=== PATIENT | female | born 1950 | race Caucasian/White ===

== ENCOUNTER 2019-04-14 23:46 | Inpatient (IN) ==
[2019-04-15] MEDS ORDERED: 0.9 % Sodium Chloride 1,000 ML IVC ONE ×2 (00:14→01:20)
[2019-04-15] MEDS ORDERED: Ondansetron 4 MG/2 ML VIAL IVP ONE (00:14)
[2019-04-15] MEDS ORDERED: Ipratropium Neb 0.5 MG NEBULIZER IH ONE (00:14)
--- NOTE | 2019-04-15 00:20 | Emergency Department Note ---
Disposition Clinical Impression: Hypoxia Disposition: Admitted As Inpatient Condition: Fair Referrals: NONE,PCP [Primary Care Provider] - Forms: ED Satisfaction Letter Time of Disposition: 02:45 General Adult HPI - General Chief complaint: ED Nausea/Vomiting/Diarrhea Stated complaint: weakness Time Seen by Provider: 04/15/19 00:00 Source: patient Mode of arrival: ambulatory Limitations: no limitations Nursing Notes Reviewed: Yes Vital Signs Reviewed: Yes - History of Present Illness HPI Narrative: 2 day history of feeling generally weak. She is not weak in one arm or one leg but started feeling weak when she was riding in a car "a good part of the day". She tells me the air conditioning and the car does not work very well and she had the windows open. The outside temperature is been in the mid 90s. No headache no vision issues no hearing issues no speech issues. Again not weak in one extremity. She has been dizzy and lightheaded. No palpitations no chest pain no shortness of breath. She has had a cough for the last 2 days as well but it has not been productive. She has been hot and cold but does not know if she has had a fever. No abdominal pain. She has been nauseated without throwing up. The nausea and generally loss of appetite the last 2 days has decreased her food intake. No diarrhea no blood in the stool no abdominal pain no urinary symptoms. She denies pain anywhere. No recent travel anywhere. No recent hospitalizations. Last year she had her colon taken out because of cancer at [facility] in [place]. She still has a port which has not been used for a year. She tells me however there is no talk of taking it out because of the fear of recurrence of cancer. She is not currently on chemotherapy and did not need any after the resection of the colon. She has followed up at [facility] since the colon was removed but she is not sure exactly when that was or when she is due back to be seen again. 15 years ago she had her left breast remove because of cancer. She stopped smoking a year ago and has no home medications including any inhalers. Pain Scale: 0 - Related Data Home Medications Medication Instructions Recorded Confirmed No Known Home Drugs 04/14/19 04/14/19 Allergies Allergy/AdvReac Type Severity Reaction Status Date / Time albuterol [From Ventolin HFA] Allergy Rash Verified 04/14/19 23:58 Constitutional: Reports: chills, weakness Eyes: Denies: vision change ENT ED: Denies: hearing loss Cardiovascular: Denies: chest pain, palpitations, dyspnea on exertion Respiratory: Reports: cough, sputum production Gastrointestinal: Reports: nausea. Denies: abdominal pain, vomiting, diarrhea, melena, hematochezia Genitourinary: Reports: as per HPI. Denies: urgency, dysuria, frequency, hematuria Musculoskeletal: Denies: arthralgia, myalgia Integumentary: Denies: rash Neurological: Reports: abnormal gait. Denies: headache, confusion Endocrine: Reports: fatigue Hematological/Lymphatic: Denies: easy bleeding, easy bruising Past Medical History - Past Medical History Medical history: Reports: cancer Psychiatric history: Reports: no psych history - Social History Smoking Status: Former smoker Smokeless Tobacco Status: No Alcohol use: Reports: none Drug use: Reports: none Physical Exam - General Limitations: no limitations General appearance: alert, in no apparent distress, other (She appears to be a good historian and answers questions appropriately.) - Head Head exam: atraumatic, normocephalic - Eye Eye exam: Present: normal appearance, PERRL, EOMI. Absent: scleral icterus - ENT ENT exam: normal oropharynx, mucous membranes moist, mucous membranes dry, normal external ear exam - Neck Neck exam: Present: normal inspection, full ROM. Absent: lymphadenopathy - Chest Chest inspection: Present: normal inspection, symmetric chest wall rise, other (Right-sided port anterior chest. Overlying skin is normal intact and non- erythematous nontender.). Absent: tenderness - Respiratory Respiratory exam: Present: wheezes (End expiratory wheezes right anterior. Bilateral bases inspiratory crackles which do not clear with coughing.), other (I am told by ER staff 89% room air and 2 L of nasal cannula were placed. Pulse ox mid 90s during my initial interview.). Absent: respiratory distress, stridor, accessory muscle use - Cardiovascular Cardiovascular exam: Present: regular rate, normal rhythm, normal heart sounds. Absent: systolic murmur, diastolic murmur - Abdominal Exam Abdominal exam: Present: soft, Non-Tender - Extremities Exam Extremities exam: Present: normal inspection. Absent: pedal edema, calf tenderness (No calf cord erythema or edema) - Back Exam Back exam: Present: normal inspection - Neurological Exam Neurological exam: Present: alert, CN II-XII intact. Absent: motor sensory deficit - Psychiatric Psychiatric exam: Present: normal affect, normal mood - Skin Skin exam: Present: warm, dry Course Vital Signs Temperature 98.6 F 04/14/19 23:59 Pulse Rate 107 04/14/19 23:59 Respiratory Rate 16 04/14/19 23:59 Blood Pressure 131/80 04/14/19 23:59 O2 Sat by Pulse Oximetry 92 04/14/19 23:59 Temperature 98.6 F 04/14/19 23:59 Pulse Rate 115 04/15/19 03:36 Respiratory Rate 20 04/15/19 03:36 Blood Pressure 124/88 04/15/19 03:36 O2 Sat by Pulse Oximetry 95 04/15/19 03:36 Oxygen Delivery Oxygen Delivery Nasal Cannula Medical Decision Making - MDM Narrative Medical decision making narrative: Hypoxia. Workup outlined as follows. Most probable cause pneumonia. 89% when she checked in corrected by 2 L of NC O2. One Atrovent given as she reported a rash with albuterol. Repeat lung exam demonstrated disappearance of the wheeze in the right lung previously noted on initial assessment. She feels as though she is able to breathe a little better although she was not complaining of any shortness of breath on initial assessment. Oxygen was attempted to be weaned at that point however on room air a few minutes later she was 85%. At this point d-dimer returned elevated. Although well's score is -1.5 she is positive for 3 of the Perc criteria which make imaging necessary. I return to the bedside and explained the reasoning for a CAT scan of the chest. She has never had a blood clot. She has had no issues with CAT scan dye except that it makes her feel "weird". Specifically she gets a funny taste in her mouth. She denies any issues with difficulty breathing with any contrast. CT PE negative but suspicious for pneumonia which would account for her hypoxia. She is not reporting any shortness of breath and with her smoking history I wonder if she is chronically hypoxic. However with the abnormal lung findings the leukocytosis we must assume that this is acute within the last couple of days. Difficult to say because she does not regularly go to the doctor where she would have her pulse ox checked. Nonetheless she is O2 dependent and will warrant hospitalization. She is known to [facility] in [place] but I do not believe that her current symptoms are cancer related so I did invite her to stay here at [facility] and she agreed. I spoke with the covering hospitalist and presented the case. He accepted admission. She is in improved condition awaiting transfer to the floor. The Zosyn has been given however does not cover atypicals for the possibility of Legionella in this patient there for Levaquin 750 mg will be started before she is transferred. She did have some decreasing blood pressures while she was here in the emergency department with a systolic of 124 after 2 L of fluid shortly before transfer. She is alert and appears well and I do not believe she is frankly septic. Note-blood cultures were drawn when Zosyn was almost done. Pyuria. I return to the bedside after the UA returned and revisited urinary symptoms all of which she denies. We will hang empiric Zosyn as we await the remainder of her labs. She does tell me she is feeling subjectively better in terms of her nausea after the IV Zofran at this point. The Levaquin should cover any urinary pathogens showed day grow out positive and culture. - Lab Data Lab results reviewed: Yes I reviewed the patient's lab results. Result diagrams: 04/15/19 00:50 04/15/19 00:50 Lab Results 04/15/19 04/15/19 04/15/19 Range/Units 00:50 00:50 00:50 WBC (4.3-11.1) K/mcL RBC (3.82-4.97) M/mcL Hgb (11.5-15.4) g/dL Hct (35.3-44.9) % MCV (83.0-100.0) fL MCH (28.0-33.3) pg MCHC (31.6-35.5) g/dL RDW (11.5-14.5) % Plt Count (140-400) K/mcL MPV (9.4-12.4) fL Immature Gran % (0-4) % Seg Neutrophils % % Lymphocytes % % Monocytes % % Eosinophils % % Basophils % % Neutrophils # (1.6-8.9) K/mcL Lymphocytes # (0.6-4.6) K/mcL Monocytes # (0.0-1.3) K/mcL Eosinophils # (0.0-0.6) K/mcL Basophils # (0.0-0.2) K/mcL PT (9.4-12.1) Seconds INR APTT (26.0-36.0) Seconds D-Dimer 954 H (0-500) ng/mLFEU Sodium (136-145) mEq/L Potassium (3.5-5.1) mEq/L Chloride (98-107) mEq/L Carbon Dioxide (23-29) mEq/L BUN (8-23) mg/dL Creatinine (0.60-1.20) mg/dL Est GFR ( Amer) (> 60) Est GFR (Non-Af Amer) (> 60) BUN/Creatinine Ratio (6-26) Glucose (70-105) mg/dL Calculated Osmolality (280-300) Calcium (8.6-10.3) mg/dL Phosphorus (2.7-4.5) mg/dL Magnesium (1.6-2.6) mg/dL Total Bilirubin (0.3-1.0) mg/dL Direct Bilirubin (0.0-0.2) mg/dL AST (13-39) Units/L ALT (7-52) Units/L Alkaline Phosphatase (34-104) Units/L Troponin I < 0.03 (< 0.04) ng/mL B-Natriuretic Peptide 100 H (Less than 100) pg/mL Serum Total Protein (6.4-8.9) g/dL Albumin (3.5-5.7) g/dL Globulin (2.4-3.5) g/dL Albumin/Globulin Ratio (1.1-2.2) TSH (0.340-5.600) mcIU/mL Urine Color (Yellow) Urine Clarity (Clear) Urine pH (5.0-8.0) pH Units Ur Specific [place] (1.010-1.025) Urine Protein (Neg-Trace) mg/dL Urine Glucose (UA) (Normal) mg/dL Urine Ketones (Negative) mg/dL Urine Blood (Negative) Urine Nitrite (Negative) Urine Bilirubin (Negative) Urine Urobilinogen (Normal) mg/dL Ur Leukocyte Esterase (Negative) Urine Microscopic RBC (0-3) per hpf Urine Microscopic WBC (0-3) per hpf Ur Squamous Epith Cells (None-Few) per lpf Urine Bacteria (None-Few) per hpf Ur Culture Indicated? (NO) Urine Opiates Screen (Gxrrhc=714) ng/mL Ur Buprenorphine Scrn (Cutoff=5) ng/mL Ur Barbiturates Screen (Kphbey=612) ng/mL Ur Phencyclidine Scrn (Cutoff=25) ng/mL Ur Amphetamines Screen (Rneabs=3116) ng/mL U Benzodiazepines Scrn (Psslye=777) ng/mL Urine Cocaine Screen (Cutoff= 300) ng/mL U Marijuana (THC) Screen (Cutoff = 50) ng/mL Ur Drug Screen Interp 04/15/19 04/15/19 04/15/19 Range/Units 00:50 00:50 00:50 WBC 12.7 H (4.3-11.1) K/mcL RBC 4.50 (3.82-4.97) M/mcL Hgb 13.8 (11.5-15.4) g/dL Hct 41.5 (35.3-44.9) % MCV 92.2 (83.0-100.0) fL MCH 30.7 (28.0-33.3) pg MCHC 33.3 (31.6-35.5) g/dL RDW 12.4 (11.5-14.5) % Plt Count 165 (140-400) K/mcL MPV 10.7 (9.4-12.4) fL Immature Gran % 0.3 (0-4) % Seg Neutrophils % 83.2 % Lymphocytes % 6.0 % Monocytes % 10.2 % Eosinophils % 0.1 % Basophils % 0.2 % Neutrophils # 10.6 H (1.6-8.9) K/mcL Lymphocytes # 0.8 (0.6-4.6) K/mcL Monocytes # 1.3 (0.0-1.3) K/mcL Eosinophils # 0.0 (0.0-0.6) K/mcL Basophils # 0.0 (0.0-0.2) K/mcL PT (9.4-12.1) Seconds INR APTT (26.0-36.0) Seconds D-Dimer (0-500) ng/mLFEU Sodium (136-145) mEq/L Potassium (3.5-5.1) mEq/L Chloride (98-107) mEq/L Carbon Dioxide (23-29) mEq/L BUN (8-23) mg/dL Creatinine (0.60-1.20) mg/dL Est GFR ( Amer) (> 60) Est GFR (Non-Af Amer) (> 60) BUN/Creatinine Ratio (6-26) Glucose (70-105) mg/dL Calculated Osmolality (280-300) Calcium (8.6-10.3) mg/dL Phosphorus (2.7-4.5) mg/dL Magnesium (1.6-2.6) mg/dL Total Bilirubin (0.3-1.0) mg/dL Direct Bilirubin (0.0-0.2) mg/dL AST (13-39) Units/L ALT (7-52) Units/L Alkaline Phosphatase (34-104) Units/L Troponin I (< 0.04) ng/mL B-Natriuretic Peptide (Less than 100) pg/mL Serum Total Protein (6.4-8.9) g/dL Albumin (3.5-5.7) g/dL Globulin (2.4-3.5) g/dL Albumin/Globulin Ratio (1.1-2.2) TSH (0.340-5.600) mcIU/mL Urine Color Dark Yellow (Yellow) Urine Clarity Slightly Cloudy A (Clear) Urine pH 5.5 (5.0-8.0) pH Units Ur Specific [place] 1.025 (1.010-1.025) Urine Protein 100 H (Neg-Trace) mg/dL Urine Glucose (UA) 100 H (Normal) mg/dL Urine Ketones 15 H (Negative) mg/dL Urine Blood Large H (Negative) Urine Nitrite Positive A (Negative) Urine Bilirubin Small H (Negative) Urine Urobilinogen Normal (Normal) mg/dL Ur Leukocyte Esterase Moderate H (Negative) Urine Microscopic RBC 5-15 H (0-3) per hpf Urine Microscopic WBC 5-15 H (0-3) per hpf Ur Squamous Epith Cells Few (None-Few) per lpf Urine Bacteria Moderate H (None-Few) per hpf Ur Culture Indicated? YES A (NO) Urine Opiates Screen Negative (Rtqskq=720) ng/mL Ur Buprenorphine Scrn Negative (Cutoff=5) ng/mL Ur Barbiturates Screen Negative (Fctxtn=544) ng/mL Ur Phencyclidine Scrn Negative (Cutoff=25) ng/mL Ur Amphetamines Screen Negative (Qwbkpa=1771) ng/mL U Benzodiazepines Scrn Negative (Anaorw=236) ng/mL Urine Cocaine Screen Negative (Cutoff= 300) ng/mL U Marijuana (THC) Screen Negative (Cutoff = 50) ng/mL Ur Drug Screen Interp See Below 04/15/19 04/15/19 04/15/19 Range/Units 00:50 00:50 00:50 WBC (4.3-11.1) K/mcL RBC (3.82-4.97) M/mcL Hgb (11.5-15.4) g/dL Hct (35.3-44.9) % MCV (83.0-100.0) fL MCH (28.0-33.3) pg MCHC (31.6-35.5) g/dL RDW (11.5-14.5) % Plt Count (140-400) K/mcL MPV (9.4-12.4) fL Immature Gran % (0-4) % Seg Neutrophils % % Lymphocytes % % Monocytes % % Eosinophils % % Basophils % % Neutrophils # (1.6-8.9) K/mcL Lymphocytes # (0.6-4.6) K/mcL Monocytes # (0.0-1.3) K/mcL Eosinophils # (0.0-0.6) K/mcL Basophils # (0.0-0.2) K/mcL PT 14.3 H (9.4-12.1) Seconds INR 1.3 APTT 31.5 (26.0-36.0) Seconds D-Dimer (0-500) ng/mLFEU Sodium 137 (136-145) mEq/L Potassium 3.8 (3.5-5.1) mEq/L Chloride 104 (98-107) mEq/L Carbon Dioxide 24 (23-29) mEq/L BUN 15 (8-23) mg/dL Creatinine 1.15 (0.60-1.20) mg/dL Est GFR ( Amer) 57 L (> 60) Est GFR (Non-Af Amer) 47 L (> 60) BUN/Creatinine Ratio 13 (6-26) Glucose 122 H (70-105) mg/dL Calculated Osmolality 286 (280-300) Calcium 9.3 (8.6-10.3) mg/dL Phosphorus 2.8 (2.7-4.5) mg/dL Magnesium 2.1 (1.6-2.6) mg/dL Total Bilirubin 1.5 H (0.3-1.0) mg/dL Direct Bilirubin (0.0-0.2) mg/dL AST 24 (13-39) Units/L ALT 20 (7-52) Units/L Alkaline Phosphatase 64 (34-104) Units/L Troponin I (< 0.04) ng/mL B-Natriuretic Peptide (Less than 100) pg/mL Serum Total Protein 6.9 (6.4-8.9) g/dL Albumin 3.7 (3.5-5.7) g/dL Globulin 3.2 (2.4-3.5) g/dL Albumin/Globulin Ratio 1.2 (1.1-2.2) TSH 2.130 (0.340-5.600) mcIU/mL Urine Color (Yellow) Urine Clarity (Clear) Urine pH (5.0-8.0) pH Units Ur Specific [place] (1.010-1.025) Urine Protein (Neg-Trace) mg/dL Urine Glucose (UA) (Normal) mg/dL Urine Ketones (Negative) mg/dL Urine Blood (Negative) Urine Nitrite (Negative) Urine Bilirubin (Negative) Urine Urobilinogen (Normal) mg/dL Ur Leukocyte Esterase (Negative) Urine Microscopic RBC (0-3) per hpf Urine Microscopic WBC (0-3) per hpf Ur Squamous Epith Cells (None-Few) per lpf Urine Bacteria (None-Few) per hpf Ur Culture Indicated? (NO) Urine Opiates Screen (Tsxcmg=407) ng/mL Ur Buprenorphine Scrn (Cutoff=5) ng/mL Ur Barbiturates Screen (Pljsxn=869) ng/mL Ur Phencyclidine Scrn (Cutoff=25) ng/mL Ur Amphetamines Screen (Hbgxrz=1612) ng/mL U Benzodiazepines Scrn (Mhkkbv=244) ng/mL Urine Cocaine Screen (Cutoff= 300) ng/mL U Marijuana (THC) Screen (Cutoff = 50) ng/mL Ur Drug Screen Interp 04/15/19 Range/Units 00:50 WBC (4.3-11.1) K/mcL RBC (3.82-4.97) M/mcL Hgb (11.5-15.4) g/dL Hct (35.3-44.9) % MCV (83.0-100.0) fL MCH (28.0-33.3) pg MCHC (31.6-35.5) g/dL RDW (11.5-14.5) % Plt Count (140-400) K/mcL MPV (9.4-12.4) fL Immature Gran % (0-4) % Seg Neutrophils % % Lymphocytes % % Monocytes % % Eosinophils % % Basophils % % Neutrophils # (1.6-8.9) K/mcL Lymphocytes # (0.6-4.6) K/mcL Monocytes # (0.0-1.3) K/mcL Eosinophils # (0.0-0.6) K/mcL Basophils # (0.0-0.2) K/mcL PT (9.4-12.1) Seconds INR APTT (26.0-36.0) Seconds D-Dimer (0-500) ng/mLFEU Sodium (136-145) mEq/L Potassium (3.5-5.1) mEq/L Chloride (98-107) mEq/L Carbon Dioxide (23-29) mEq/L BUN (8-23) mg/dL Creatinine (0.60-1.20) mg/dL Est GFR ( Amer) (> 60) Est GFR (Non-Af Amer) (> 60) BUN/Creatinine Ratio (6-26) Glucose (70-105) mg/dL Calculated Osmolality (280-300) Calcium (8.6-10.3) mg/dL Phosphorus (2.7-4.5) mg/dL Magnesium (1.6-2.6) mg/dL Total Bilirubin (0.3-1.0) mg/dL Direct Bilirubin 0.2 (0.0-0.2) mg/dL AST (13-39) Units/L ALT (7-52) Units/L Alkaline Phosphatase (34-104) Units/L Troponin I (< 0.04) ng/mL B-Natriuretic Peptide (Less than 100) pg/mL Serum Total Protein (6.4-8.9) g/dL Albumin (3.5-5.7) g/dL Globulin (2.4-3.5) g/dL Albumin/Globulin Ratio (1.1-2.2) TSH (0.340-5.600) mcIU/mL Urine Color (Yellow) Urine Clarity (Clear) Urine pH (5.0-8.0) pH Units Ur Specific [place] (1.010-1.025) Urine Protein (Neg-Trace) mg/dL Urine Glucose (UA) (Normal) mg/dL Urine Ketones (Negative) mg/dL Urine Blood (Negative) Urine Nitrite (Negative) Urine Bilirubin (Negative) Urine Urobilinogen (Normal) mg/dL Ur Leukocyte Esterase (Negative) Urine Microscopic RBC (0-3) per hpf Urine Microscopic WBC (0-3) per hpf Ur Squamous Epith Cells (None-Few) per lpf Urine Bacteria (None-Few) per hpf Ur Culture Indicated? (NO) Urine Opiates Screen (Syasjy=846) ng/mL Ur Buprenorphine Scrn (Cutoff=5) ng/mL Ur Barbiturates Screen (Etwlqc=410) ng/mL Ur Phencyclidine Scrn (Cutoff=25) ng/mL Ur Amphetamines Screen (Mcgczu=1869) ng/mL U Benzodiazepines Scrn (Amgjdn=431) ng/mL Urine Cocaine Screen (Cutoff= 300) ng/mL U Marijuana (THC) Screen (Cutoff = 50) ng/mL Ur Drug Screen Interp - Radiology Data Radiology results reviewed: Yes I reviewed the patient's radiology results. - EKG Data EKG #1 EKG attestation: Yes I reviewed and interpreted this EKG. EKG results narrative: EKG as interpreted by me sinus tachycardia 108 beats per minutes. No T-wave abnormalities. Normal axis. No ST elevations or depressions. No evidence of hypertrophy. No comparison available.
[2019-04-15 00:55] LABS: Basophils % 0.2 %; Eosinophils % 0.1 %; Hematocrit 41.5 % (35.3-44.9); Hemoglobin 13.8 g/dL (11.5-15.4); Immature Granulocytes % 0.3 % (0-4); Lymphocytes # 0.8 K/mcL (0.6-4.6); Mean Corpuscular HGB Conc 33.3 g/dL (31.6-35.5); Mean Corpuscular Hemoglobin 30.7 pg (28.0-33.3); Mean Corpuscular Volume 92.2 fL (83.0-100.0); Mean Platelet Volume 10.7 fL (9.4-12.4); Monocytes # 1.3 K/mcL (0.0-1.3); Monocytes % 10.2 %; Neutrophils # 10.6 K/mcL (1.6-8.9); Platelet Count 165 K/mcL (140-400); Red Cell Distribution Width 12.4 % (11.5-14.5); Segmented Neutrophils % 83.2 %; White Blood Count 12.7 K/mcL (4.3-11.1)
[2019-04-15 01:06] LABS: Bilirubin,Urine Small (Negative); Blood,Urine Large (Negative); Clarity,Urine Slightly Cloudy (Clear); Glucose,Urine (UA) 100 mg/dL (Normal); Ketones,Urine 15 mg/dL (Negative); Leukocyte Esterase,Urine Moderate (Negative); Nitrite,Urine Positive (Negative); PH,Urine 5.5 pH Units (5.0-8.0); Protein,Urine 100 mg/dL (Neg-Trace); Specific Gravity,Urine 1.025 (1.010-1.025); Urobilinogen,Urine Normal (Normal)
[2019-04-15 01:07] LABS: Color,Urine Dark Yellow (Yellow); INR 1.3; Prothrombin Time 14.3 Seconds (9.4-12.1)
[2019-04-15 01:08] LABS: Bacteria,Urine Moderate per hpf (None-Few); Squamous Epithelial Cell,Urine Few per lpf (None-Few)
[2019-04-15] MEDS ORDERED: Piperacillin/Tazobactam 3.375 GM in 0.9 % Sodium Chloride Mini Bag 100 ML IVPB ONE (01:09)
[2019-04-15 01:10] LABS: Activated Partial Thrombo Time 31.5 Seconds (26.0-36.0)
[2019-04-15 01:16] LABS: Amphetamine Screen,Urine Negative ng/mL (Cutoff=1000); Barbiturate Screen,Urine Negative ng/mL (Cutoff=200); Benzodiazepines Screen,Urine Negative ng/mL (Cutoff=200); Cannabinoid Screen,Urine Negative ng/mL (Cutoff = 50); Cocaine Screen,Urine Negative ng/mL (Cutoff= 300); Magnesium 2.1 mg/dL (1.6-2.6); Opiate Screen,Urine Negative ng/mL (Cutoff=300); Phencyclidine Screen,Urine Negative ng/mL (Cutoff=25)
[2019-04-15 01:18] LABS: Albumin 3.7 g/dL (3.5-5.7); Albumin/Globulin Ratio 1.2 (1.1-2.2); Bilirubin,Total 1.5 mg/dL (0.3-1.0); Calcium 9.3 mg/dL (8.6-10.3); Globulin 3.2 g/dL (2.4-3.5); Phosphorous 2.8 mg/dL (2.7-4.5); Potassium 3.8 mEq/L (3.5-5.1); Total Protein 6.9 g/dL (6.4-8.9)
[2019-04-15] MEDS ORDERED: Isovue-370 500 ML BOTTLE IVP ONE (01:34)
[2019-04-15 02:51] LABS: Thyroid Stimulating Hormone 2.13 mcIU/mL (0.340-5.600)
[2019-04-15] MEDS ORDERED: levoFLOXacin 750 MG/150 ML 750 MG/150 ML BAG IVPB ONE ×2 (03:32→03:42)
[2019-04-15] MEDS ORDERED: Ondansetron 4 MG/2 ML VIAL IVP PRN (03:42)
[2019-04-15] MEDS ORDERED: Naloxone 0.4 MG/ML INJ IVP PRN (03:42)
[2019-04-15] MEDS ORDERED: Ipratropium Neb 0.5 MG NEBULIZER IH PRN ×2 (03:51→05:46)
[2019-04-15] MEDS: 0.9 % Sodium Chloride 1,000 ML IVC SCH ×2 (04:58→11:28)
[2019-04-15] MEDS: *HR* Enoxaparin 40 MG/0.4 ML SYRINGE SQ SCH (06:19)
--- NOTE | 2019-04-15 08:28 | Internal Med History&Physical ---
Date of Encounter: 04/15/19 Time of Encounter: 08:28 Assessment and Plan (1) Nausea alone Current visit: Yes Status: Acute Etiology is not certain but because of elevated lipase, will recheck. (2) Atelectasis Current visit: Yes Status: Acute We will ask that she use incentive spirometer and will follow oxygen, trying to oxygen supplementation. (3) Elevated hemidiaphragm Current visit: Yes Status: Acute This is on certain age. We will try to find previous x-ray results. (4) Elevated lipase Current visit: Yes Status: Acute Will repeat, as noted. (5) Fibromyalgia Current visit: Yes Status: Acute This is apparently long-standing but not currently treated with medication. (6) History of left breast cancer Current visit: Yes Status: Acute This is apparently without recurrence, status post left mastectomy with chemotherapy in 2004. (7) History of colon cancer Current visit: Yes Status: Acute Status post segmental colectomy with no other treatment per patient. This was in January of this year. Bowel sounds and exam are benign therefore I do not think that this relates to her current issue. Internal Medicine - H&P: HPI Admitted From: Emergency Dept Plans for Post Hospital Care: Home History of present illness: Ms. Stephens is a 68 year old female with a history of breast and colon cancer who was in her usual state of health until about a week ago. At that point, she was not feeling well and went to the emergency room in [place]. She was told that she "was on the verge of having a stroke." She is not sure what this means. She denies speech or focal neurologic changes. She was found to have a UTI. (Records of labs from [place] [facility] showed that this was greater than 100,000 colonies of pansensitive Escherichia coli.) She was given antibiotics of unknown type & sent home. She was found to have an elevated lipase and so we will repeat lipase, now. She did well until about 3 days ago when she began to feel overheated. She spent all day and her car which does not have air conditioning and made her feel hot and sweaty. However, she felt hot and sweaty even went back and air conditioning, later that day. She denies other infectious symptoms such as chills, dysuria, hematuria, cough, rash, flushing, etc. She does admit to mild shortness of breath with exertion. She has mild nausea since yesterday and yesterday also felt that it was just not herself. She has not vomited but feels "like I need to." She denies headache, focal neurologic deficit, lightheadedness or dizziness, other change in bowel or bladder. She denies melena or hematochezia. She was seen in the emergency department here. She was noted to have hypoxia and placed on oxygen. There she was found to have a d-dimer that was sign ificantly elevated but CT scanning showed no pulmonary embolus. It did confirm her right basilar atelectasis and right diaphragmatic elevation. White blood count was only mildly elevated in the 12's. Remainder of lab was unremarkable. Past medical history is significant for breast cancer with left mastectomy followed by chemotherapy in 2004. She was diagnosed with isolated colon cancer in January 2019 and underwent removal of "6 inches" of her colon. She had no radiation or chemotherapy after that and was told that "they got it all," and needed no further treatment. She has 7 or 8 years of fibromyalgia. Past surgical history includes only mastectomy and segmental colectomy. She wears full dentures but because of weight loss, she is not been wearing them for quite some time. She has a [id number] smoking history but stopped about one year ago. She does not drink alcohol or beer and denies street drugs. She is a retired ECF aid. She lives with "Emerita" in [place] does not have a house of her own. Emerita aids with her care at home and she states that she would like us to share any medical information with her. Her son Harish is her next of kin and we may speak with him about anything. She has another, younger, son who is addicted to drugs and she does not want him to visit her in the hospital nor are we to speak with him. His name is Miguel. Past Med Surg Social Fam HX - Past Medical History Medical history: cancer Additional medical history: Colon cancer. Psychiatric history: no psych history - Past Surgical History Additional surgical history: Left Mastectomy,Colon removed - Social History Smoking Status: Former smoker Smokeless Tobacco Status: No Alcohol use: none Drug use: none - Family History Father History Unknown: Yes Adopted: No Living Status: Age at : 7 Cause of : Lung Cancer Hx Family Respiratory Disorders: Yes (Lung Cancer) Hx Family Cancer: Yes Mother History Unknown: Yes Adopted: No Living Status: Age at : 65 Hx Family Cardiac Disorders: Yes Internal Medicine - H&P: Meds No Known Home Drugs 04/14/19 [History] Allergy/AdvReac Type Severity Reaction Status Date / Time albuterol [From Ventolin HFA] Allergy Rash Verified 04/14/19 23:58 All Systems PM: Patient has no complaint of chest discomfort, dyspnea, orthopnea, breathing problems, palpitations, nausea or vomiting, constipation or diarrhea, other changes in bowel habits, heartburn, difficulty with urination, kidney problems or kidney stones, fevers chills or sweats, rash or itching, seizures, headache or lightheadedness, heat or cold intolerance, blood problems or anemia, or other new complaints, except as mentioned above. Review of systems is otherwise negative. - Constitutional Vitals: Temp Pulse Resp BP Pulse Ox 98.1 F 62 16 91/56 92 04/15/19 07:33 04/15/19 07:33 04/15/19 07:33 04/15/19 07:33 04/15/19 07:33 Exam: Examination: (Except as mentioned above): General: In no apparent distress, alert and oriented 3. Head: Atraumatic and normocephalic. Eyes: Extraocular muscles are intact, pupils equal round and reactive to light and accommodation. Sclerae anicteric. Ears: External ears are normal to inspection and hearing is grossly normal. Nose: Patent without lesion noted. Mouth: No intraoral lesions seen. She is edentulous Neck: Supple with trachea midline. There is no thyromegaly or adenopathy and carotids are 2+ without bruit heard. Respiratory: No use of accessory muscles. Lungs are clear throughout. Normal airflow. Cardiovascular: Regular rate and rhythm without murmur appreciated. Abdomen: Bowel sounds are normal. No hepatosplenomegaly masses or tenderness. Obese and therefore difficult to palpate deeply. Extremities: No cyanosis clubbing or edema. Neurological: A and O 3. Cranial nerves II through XII are intact. No focal deficits and no abnormal movements or postures. Skin: Warm and non-diaphoretic with no lesions noted. Breasts, pelvic and rectal: Not examined. However, she has no left breast. Internal Med - H&P Results - Labs CBC & Chem 7: 04/15/19 00:50 04/15/19 00:50 Labs: Short CBC 04/15/19 Range/Units 00:50 WBC 12.7 H (4.3-11.1) K/mcL Hgb 13.8 (11.5-15.4) g/dL Hct 41.5 (35.3-44.9) % Plt Count 165 (140-400) K/mcL Neutrophils # 10.6 H (1.6-8.9) K/mcL BMP 04/15/19 00:50 Sodium 137 Potassium 3.8 Chloride 104 Carbon Dioxide 24 BUN 15 Creatinine 1.15 Glucose 122 H Calcium 9.3 Cardiac Enzymes 04/15/19 Range/Units 00:50 Troponin I < 0.03 (< 0.04) ng/mL Liver Function 04/15/19 04/15/19 Range/Units 00:50 00:50 Total Bilirubin 1.5 H (0.3-1.0) mg/dL Direct Bilirubin 0.2 (0.0-0.2) mg/dL AST 24 (13-39) Units/L ALT 20 (7-52) Units/L Alkaline Phosphatase 64 (34-104) Units/L Albumin 3.7 (3.5-5.7) g/dL Urine 04/15/19 Range/Units 00:50 Urine Color Dark Yellow (Yellow) Urine Clarity Slightly Cloudy A (Clear) Urine pH 5.5 (5.0-8.0) pH Units Ur Specific [place] 1.025 (1.010-1.025) Urine Protein 100 H (Neg-Trace) mg/dL Urine Glucose (UA) 100 H (Normal) mg/dL - Impressions ITS Impressions Chest X-Ray 04/15/19 00:15 IMPRESSION: Right basilar atelectasis or scarring. Mild elevation of right hemidiaphragm. D/ / Johana Hutchison Cha, MD / Johana Hutchison Cha, MD Interpreting Provider: Johana Hutchison Cha, MD Chest CTA 04/15/19 01:34 IMPRESSION: 1. Limited study with no definite scan evidence for pulmonary embolus. 2. Bilateral lower lobe atelectasis or pneumonia. D/ / Rosendo Rush MD / Rosendo Rush MD Interpreting Provider: Rosendo Rush MD
[2019-04-15 11:18] LABS: Amylase 20 Units/L (29-103); Lipase 4 Units/L (11-82)
[2019-04-15 19:55] LABS: Acinetobacter baumannii by PCR Not Detected (Not Detect); Candida albicans by PCR Not Detected (Not Detect); Candida glabrata by PCR Not Detected (Not Detect); Candida krusei by PCR Not Detected (Not Detect); Candida parapsilosis by PCR Not Detected (Not Detect); Candida tropicalis by PCR Not Detected (Not Detect); Enterobacter cloacae Cmplx PCR Not Detected (Not Detect); Enterobacteriaceae by PCR DETECTED (Not Detect); Enterococcus by PCR Not Detected (Not Detect); Escherichia coli by PCR DETECTED (Not Detect); Klebsiella oxytoca by PCR Not Detected (Not Detect); Klebsiella pneumoniae by PCR Not Detected (Not Detect); Proteus by PCR Not Detected (Not Detect); Pseudomonas aeruginosa by PCR Not Detected (Not Detect); Serratia marcescens by PCR Not Detected (Not Detect); Staphylococcus aureus by PCR Not Detected (Not Detect); Staphylococcus by PCR Not Detected (Not Detect); Streptococcus agalactiae(B)PCR Not Detected (Not Detect); Streptococcus by PCR Not Detected (Not Detect); Streptococcus pneumoniae PCR Not Detected (Not Detect); Streptococcus pyogenes (A) PCR Not Detected (Not Detect); blaKPC Carbapenem-Resist Gene Not Detected (Not Detect)
[2019-04-15] MEDS: Acetaminophen 325 MG TABLET PO PRN (22:08)
[2019-04-16] MEDS: Piperacillin/Tazobactam 3.375 GM in 0.9 % Sodium Chloride Mini Bag 100 ML IVPB SCH ×4 (00:01→23:32)
[2019-04-16] MEDS: Acetaminophen 325 MG TABLET PO PRN (04:29)
[2019-04-16 05:37] LABS: Basophils % 0.2 %; Eosinophils % 0.2 %; Hematocrit 36.8 % (35.3-44.9); Immature Granulocytes % 0.4 % (0-4); Lymphocytes % 11.3 %; Mean Corpuscular HGB Conc 32.1 g/dL (31.6-35.5); Mean Corpuscular Hemoglobin 30.8 pg (28.0-33.3); Mean Corpuscular Volume 96.1 fL (83.0-100.0); Mean Platelet Volume 10.9 fL (9.4-12.4); Monocytes # 0.8 K/mcL (0.0-1.3); Neutrophils # 6.7 K/mcL (1.6-8.9); Platelet Count 146 K/mcL (140-400); Red Blood Count 3.83 M/mcL (3.82-4.97); Segmented Neutrophils % 78.9 %; White Blood Count 8.6 K/mcL (4.3-11.1)
[2019-04-16 05:46] LABS: Hemoglobin 11.8 g/dL (11.5-15.4)
[2019-04-16 05:53] LABS: Alanine Aminotransferase 13 Units/L (7-52); Albumin 2.7 g/dL (3.5-5.7); Alkaline Phosphatase 55 Units/L (34-104); Aspartate Amino Transferase 12 Units/L (13-39); BUN/Creatinine Ratio 16 (6-26); Bilirubin,Total 0.8 mg/dL (0.3-1.0); Blood Urea Nitrogen 14 mg/dL (8-23); Calcium 8.5 mg/dL (8.6-10.3); Carbon Dioxide 25 mEq/L (23-29); Chloride 113 mEq/L (98-107); Globulin 2.6 g/dL (2.4-3.5); Glucose 92 mg/dL (70-105); Magnesium 2.2 mg/dL (1.6-2.6); Osmolality,Calculated 298 (280-300); Sodium 144 mEq/L (136-145); Total Protein 5.3 g/dL (6.4-8.9); eGFR For African Americans > 60 (> 60); eGFR For Non-African Americans > 60 (> 60)
[2019-04-16] MEDS: *HR* Enoxaparin 40 MG/0.4 ML SYRINGE SQ SCH (06:29)
--- NOTE | 2019-04-16 12:22 | Internal Med Progress Note ---
Date of Encounter: 04/17/19 Time of Encounter: 13:30 - Subjective Interval history: Assessment and Plan (1) UTI Enterobacter and E Coli bacteremia responding well to IV Zosyn and levaquin afebrile now wbc improving nausea and flank pain improving dehydration discussed with pt she does not drink water at home soda or coffee advised 30 to 40 oz water daily instead will also add Vit C postmenopausal bladder care discussed (2) Nausea alone - resolved Current visit: Yes Status: Acute Etiology likely related to uti (2) Atelectasis Current visit: Yes Status: Acute We will ask that she use incentive spirometer and will follow oxygen, trying to oxygen supplementation. (3) Elevated hemidiaphragm Current visit: Yes Status: Acute chronic (4) Elevated lipase Current visit: Yes Status: Acute asymptomatic (5) Fibromyalgia Current visit: Yes Status: Acute This is apparently long-standing but not currently treated with medication. (6) History of left breast cancer Current visit: Yes Status: Acute This is apparently without recurrence, status post left mastectomy with chemotherapy in 2004. (7) History of colon cancer Current visit: Yes Status: Acute Status post segmental colectomy with no other treatment per patient. This was in January of this year. no current problems with this Internal Medicine - H&P: HPI Admitted From: Emergency Dept Plans for Post Hospital Care: Home History of present illness: Ms. Stephens is a 68 year old female with a history of breast and colon cancer who was in her usual state of health until about a week ago. At that point, she was not feeling well and went to the emergency room in [place]. She was told that she "was on the verge of having a stroke." She is not sure what this means. She denies speech or focal neurologic changes. She was found to have a UTI. (Records of labs from [place] [facility] showed that this was greater than 100,000 colonies of pansensitive Escherichia coli.) She was given antibiotics of unknown type & sent home. She was found to have an elevated lipase and so we will repeat lipase, now. She did well until about 3 days ago when she began to feel overheated. She spent all day and her car which does not have air conditioning and made her feel hot and sweaty. However, she felt hot and sweaty even went back and air conditioning, later that day. She denies other infectious symptoms such as chills, dysuria, hematuria, cough, rash, flushing, etc. She does admit to mild shortness of breath with exertion. She has mild nausea since yesterday and yesterday also felt that it was just not herself. She has not vomited but feels "like I need to." She denies headache, focal neurologic deficit, lightheadedness or dizziness, other change in bowel or bladder. She denies melena or hematochezia. She was seen in the emergency department here. She was noted to have hypoxia and placed on oxygen. There she was found to have a d-dimer that was significantly elevated but CT scanning showed no pulmonary embolus. It did confirm her right basilar atelectasis and right diaphragmatic elevation. White blood count was only mildly elevated in the 12's. Remainder of lab was unremarkable. Past medical history is significant for breast cancer with left mastectomy followed by chemotherapy in 2004. She was diagnosed with isolated colon cancer in January 2019 and underwent removal of "6 inches" of her colon. She had no radiation or chemotherapy after that and was told that "they got it all," and needed no further treatment. She has 7 or 8 years of fibromyalgia. Past surgical history includes only mastectomy and segmental colectomy. She wears full dentures but because of weight loss, she is not been wearing them for quite some time. She has a 13-eyhm-gbov smoking history but stopped about one year ago. She does not drink alcohol or beer and denies street drugs. She is a retired ECF aid. She lives with "Emerita" in [place] but does not have a house of [facility]. Emerita aids with her care at home and she states that she would like us to share any medical information with her. Her son Harish is her next of kin and we may speak with him about anything. She has another, younger, son who is addicted to drugs and she does not want him to visit her in the hospital nor are we to speak with him. His name is Miguel. Exam: Examination: General: In no apparent distress, alert and oriented 3. Head: Atraumatic and normocephalic. Eyes: Extraocular muscles are intact, pupils equal round and reactive to light and accommodation. Sclerae anicteric. Ears: External ears are normal to inspection and hearing is grossly normal. Nose: Patent without lesion noted. Mouth: No intraoral lesions seen. She is edentulous Neck: Supple with trachea midline. There is no thyromegaly or adenopathy and carotids are 2+ without bruit heard. Respiratory: No use of accessory muscles. Lungs are clear throughout. Normal airflow. Cardiovascular: Regular rate and rhythm without murmur appreciated. Abdomen: Bowel sounds are normal. No hepatosplenomegaly masses or tenderness. Obese and therefore difficult to palpate deeply. Extremities: No cyanosis clubbing or edema. Neurological: A and O 3. Cranial nerves II through XII are intact. No focal deficits and no abnormal movements or postures. Skin: Warm and non-diaphoretic with no lesions noted. Breasts, pelvic and rectal: Not examined. However, she has no left breast. - Constitutional Vitals: Temp Pulse Resp BP Pulse Ox 98.6 F 74 16 117/73 98 04/16/19 11:00 04/16/19 11:00 04/16/19 11:00 04/16/19 11:00 04/16/19 11:00 Internal Medicine: Result - Labs CBC & Chem 7: 04/16/19 05:14 04/16/19 05:14 Labs: Short CBC 04/16/19 Range/Units 05:14 WBC 8.6 (4.3-11.1) K/mcL Hgb 11.8 D (11.5-15.4) g/dL Hct 36.8 (35.3-44.9) % Plt Count 146 (140-400) K/mcL Neutrophils # 6.7 (1.6-8.9) K/mcL BMP 04/16/19 05:14 Sodium 144 Potassium 4.0 Chloride 113 H Carbon Dioxide 25 BUN 14 Creatinine 0.89 Glucose 92 Calcium 8.5 L Liver Function 04/16/19 Range/Units 05:14 Total Bilirubin 0.8 (0.3-1.0) mg/dL AST 12 L (13-39) Units/L ALT 13 (7-52) Units/L Alkaline Phosphatase 55 (34-104) Units/L Albumin 2.7 L (3.5-5.7) g/dL - ABG Interpretation ABG results: PT/INR, D-dimer PT 14.3 Seconds (9.4-12.1) H 04/15/19 00:50 954 ng/mLFEU (0-500) H 04/15/19 00:50 - VTE Reasons for not Prescribing Prophylaxis: Not indicated-Anticoagulated or INR therapeutic Consult Discharge Plan - Plan Referrals: NONE,PCP [Primary Care Provider] -
[2019-04-17] MEDS: *HR* Enoxaparin 40 MG/0.4 ML SYRINGE SQ SCH (05:45)
[2019-04-17] MEDS ORDERED: levoFLOXacin 750 MG/150 ML 750 MG/150 ML BAG IVPB SCH (06:00)
[2019-04-17] MEDS: Piperacillin/Tazobactam 3.375 GM in 0.9 % Sodium Chloride Mini Bag 100 ML IVPB SCH ×2 (08:16→18:09)
--- NOTE | 2019-04-17 11:58 | Internal Med Progress Note ---
Date of Encounter: 04/17/19 Time of Encounter: 11:57 - Assessment and plan (1) Nausea alone Current Visit: Yes Status: Acute Assessment and plan: Improving. Monitor. Labs pending. (2) Atelectasis Current Visit: Yes Status: Acute Assessment and plan: Maintaining O2 sats at 97% with 1 L. Will try to wean oxygen. Monitor O2 sats. (3) History of left breast cancer Current Visit: Yes Status: Acute (4) History of colon cancer Current Visit: Yes Status: Acute - Time Spent With Patient less than 15 minutes - Subjective Interval history: Patient resting in bed. Maintaining O2 sats at 97% with 1 L. States she is feeling much better today, denies shortness of breath or chest pain. Denies fever, chills, nausea vomiting or diarrhea at this time. - Constitutional Vitals: Temp Pulse Resp BP Pulse Ox 98.6 F 74 15 119/77 95 04/17/19 11:14 04/17/19 11:14 04/17/19 11:14 04/17/19 11:14 04/17/19 11:14 General appearance: Present: cooperative, A&O X 3, pleasant, no acute distress, answers questions appropriately - Head Head exam: Present: atraumatic, normocephalic - Eye Eye exam: Present: PERRL, conjuntiva pink, sclera anicteric Pupils: Present: PERRL - Neck Neck exam general surgery: Present: supple, trachea midline. Absent: lymphadenopathy - Respiratory Respiratory exam: Present: CTAB. Absent: accessory muscle use, rales, rhonchi, wheezes - Cardiovascular Cardiovascular exam: Present: RRR, +S1, +S2. Absent: diastolic murmur, gallop, rubs, systolic murmur - GI/Abdominal GI/Abdominal exam: Present: normal bowel sounds, soft, no peritoneal signs. Absent: distended, tenderness - Extremities Exam Extremities exam: Present: warm, radial pulses palpable and symmetrical. Absent: calf tenderness, cyanotic, pedal edema - Neurological Exam Neurological exam: Present: CN II-XII intact, oriented X3, no focal deficits. Absent: pronater drift, facial droop, speech deficit - Skin Skin exam: Present: dry, intact Internal Medicine: Result - Labs CBC & Chem 7: 04/16/19 05:14 04/16/19 05:14 - ABG Interpretation ABG results: PT/INR, D-dimer PT 14.3 Seconds (9.4-12.1) H 04/15/19 00:50 954 ng/mLFEU (0-500) H 04/15/19 00:50 - VTE Reasons for not Prescribing Prophylaxis: Not indicated-Anticoagulated or INR therapeutic Consult Discharge Plan - Plan Referrals: NONE,PCP [Primary Care Provider] -
[2019-04-18] MEDS: Piperacillin/Tazobactam 3.375 GM in 0.9 % Sodium Chloride Mini Bag 100 ML IVPB SCH ×2 (00:55→08:02)
[2019-04-18] MEDS: *HR* Enoxaparin 40 MG/0.4 ML SYRINGE SQ SCH (06:14)
[2019-04-18 14:27] VITALS: BP 139/86
--- NOTE | 2019-04-18 16:58 | Discharge Summary ---
- NOTES TO OUTPATIENT PROVIDER Notes to Outpatient Provider: patient does not routinely drink water advised water routine of 40 ounces a day and use measures water bottle Date of Encounter: 04/25/19 Time of Encounter: 16:40 - Discharge Diagnosis (1) Urinary tract infection Priority: Primary Status: Acute Comments: pt with severe uti along with e coli bactermia and likely early pyelonephritis had dehydration sec to increase sweating and poor home oral water intake routine discussed and addressed pt notes stress at home increased as she cares for her 4 yr old grandson who has autism they are getting harder at home she did just get him into head start denies safety concerns her son nishant is here and is supportive pt did well on levaquin wbc down afebrile nausea and pain gone urinating well will use home levaquin 10 days Qualifiers: Urinary tract infection type: acute cystitis Hematuria presence: without hematuria Qualified Code(s): N30.00 - Acute cystitis without hematuria (2) Bacteremia due to Escherichia coli Priority: Primary Status: Acute Comments: pt had enterobacter and e coli in urine she originally had flank pain and fever and wbc elvated and n/v all resolved [facility]: Ms. Stephens is a 68 year old female who was admit with severe uti with fever n/v flank pain she had been ill for 3 days prior to coming to ed given iv antibiotic and did well hampton placed and monitored encouraged to improve oral fluid intake at home will be discharged in stable condition improved on oral levaquin Discharge discussed with: patient Time spent discussing smoking cessation with patient: 3 to 10 minutes - Time Spent with Patient Total time spent providing and/or coordinating discharge services: Time spent: Less than 30 minutes - Discharge Medications Prescriptions: New Levofloxacin [Levaquin] 500 mg PO DAILY 10 Days #10 tablet Home Medications: Levofloxacin [Levaquin] 500 mg PO DAILY 10 Days #10 tablet 04/18/19 [Rx] Allergies/Adverse Reactions: Allergy/AdvReac Type Severity Reaction Status Date / Time albuterol [From Ventolin HFA] Allergy Rash Verified 04/14/19 23:58 Date of admission: 04/15/19 19:59 Primary care physician: PCP NONE - Constitutional Vitals: Temp Pulse Resp BP Pulse Ox 98.0 F 60 16 139/86 95 04/18/19 12:00 04/18/19 12:00 04/18/19 12:00 04/18/19 12:00 04/18/19 12:00 General appearance: Present: cooperative, pleasant - Patient Status Disposition: Home, Self-Care Condition: Fair Functional capacity at discharge: independent ambulation - Discharge Instructions Follow Up With: NONE,PCP [Primary Care Provider] - - VTE Reasons for not Prescribing Prophylaxis: Not indicated-Anticoagulated or INR therapeutic
[2019-04-19] MEDS ORDERED: levoFLOXacin 500 MG TABLET PO SCH (09:00)
--- NOTE | 2019-04-20 21:26 | Electrocardiograph Report ---
[place] [id number] Test Date: 2019-04-14 Pat Name: Honey Stephens Department: [facility] Room: 113 Gender: F Director Of Instruction: : 1950 Requested By: Baljit Araujo Order Number: [id number] Reading MD: Shira Kim Measurements Intervals [place] Rate: 108 P: 56 NM: 106 QRS: 38 QRSD: 90 T: 52 QT: 317 QTc: 425 Interpretive Statements Sinus tachycardia Electronically Signed On 04-20-2019 21:24:28 EDT by Shira Kim
== END 2019-04-18 17:30 | disposition home or self-care (01) | DRG 690 ==
LOC: INPGRE 23:46 → EMEROOGRE 23:46 → INPGRE 04-15 04:04